=== PATIENT | female | born 1975 | race Caucasian/White ===

== ENCOUNTER → 2017-09-02 | Outpatient (CLI) | payer BC ==
--- NOTE | 2017-09-02 20:19 | Diagnostic Imaging Report ---
Indication: Right breast calcifications. Patient presents for additional views. Correlation is made with prior mammogram from 05/29/2017. Patient returned and magnification CC and ML views as well as conventional 90 degree lateral 3D view was performed. FINDINGS: There are multiple punctate calcifications in the lateral central aspect of the right breast. There are also some punctate calcifications more superiorly in the right breast. No pleomorphism or soft tissue mass is seen. No other abnormalities are identified. IMPRESSION: BI-RADS category 3 Primarily punctate calcifications in the outer and upper outer right breast. These are likely benign but followup right mammogram in 6 months is recommended to confirm stability. ACR BI-RADS Category 3: Probably benign findings. Result letter will be mailed to the patient. Note: At least 10% of breast cancer is not imaged by mammography. Dictated by: Dictated on workstation # [id number]
== END ==
LOC: RAD 13:44
PROVIDERS: ATTEND Obstetrics & Gynecology
DX: R92.1 Mammographic calcification found on diagnostic imaging of breast (principal)